=== PATIENT | female | born 1975 | race Caucasian/White ===

== ENCOUNTER → 2017-01-21 | Outpatient (CLI) | payer BC ==
--- NOTE | 2017-01-21 14:12 | US ---
EXAMINATION TYPE: US thyroid st tissue head/neck DATE OF EXAM: 01/21/2017 COMPARISON: NONE CLINICAL HISTORY: 41-year-old female R22.0 SWELLING MASS ABNORMALITY HEAD/NECK. Right neck painful/pa lpable lump x 5 months, dysphagia. TECHNIQUE: Multiple sonographic images of the thyroid gland are obtained. FINDINGS: GLAND SIZE: Right Lobe: 4.8 x 2.5 x 3.2 cm Overall Parenchyma: homogenous Left Lobe: 3.7 x 1.2 x 1.3 cm Overall Parenchyma: homogeneous Isthmus Thickness: 0.3 cm NODULES RIGHT: # of nodules measured on right: 1 1. 3.3 X 2.4 x 2.6 cm hypoechoic solid nodule at the mid pole with well-defined margins. This nodul e is wider than tall and shows intranodular vascularity. Prior size: no previous No additional nodules are seen. Bilateral neck scanned, no evidence of lymphadenopathy. IMPRESSION: Large solitary 3.3 cm solid nodule in the right lobe. FNA can further evaluate.
== END | disposition home or self-care (01) ==
LOC: RADUSWWP 12:26
PROVIDERS: ATTEND Internal Medicine
DX: E04.1 Nontoxic single thyroid nodule (principal)
CPT/HCPCS: 76536

== ENCOUNTER → 2017-01-21 | Outpatient (CLI) | payer BC ==
[2017-01-21 13:15] LABS: Basophils # (A) 0.1 k/uL (0-0.2); Basophils % (A) 1 %; CH 32.5; CHCM 33.9; Eosinophils # (A) 0.3 k/uL (0-0.7); Eosinophils % (A) 2 %; HCT 49.2 % (34.0-46.0); HDW 2.35; HGB 15.7 gm/dL (11.4-16.0); Luc # (Auto) 0.13; Luc % (Auto) 1; Lymphocytes # (A) 3.1 k/uL (1.0-4.8); Lymphocytes % (A) 31 %; MCH 30.7 pg (25.0-35.0); MCHC 31.9 g/dL (31.0-37.0); MCV 96.1 fL (80.0-100.0); Mean Platelet Volume 7.8; Monocytes # (A) 0.4 k/uL (0-1.0); Monocytes % (A) 4 %; Neutrophils # (A) 6.2 k/uL (1.3-7.7); Neutrophils % (A) 61 %; RBC 5.12 m/uL (3.80-5.40); RDW 13.9 % (11.5-15.5); WBC 10.2 k/uL (3.8-10.6); WBC (Perox) 10.11
[2017-01-21 13:37] LABS: Anion Gap 11 mmol/L; Blood Urea Nitrogen 11 mg/dL (7-17); Calcium 9.4 mg/dL (8.4-10.2); Carbon Dioxide 24 mmol/L (22-30); Chloride 107 mmol/L (98-107); Glucose 86 mg/dL (74-99); Non-African American GFR(MDRD) >60 (>60 ml/min/1.73 sqM); Potassium 4.4 mmol/L (3.5-5.1); Sodium 142 mmol/L (137-145)
[2017-01-21 13:40] LABS: Rheumatoid Factor, Qnt <9 IU/mL (<12)
[2017-01-21 20:14] LABS: ANA w/Reflex to Titer NEGATIVE (NEGATIVE)
== END | disposition home or self-care (01) ==
LOC: LABWHC1 12:49
PROVIDERS: ATTEND Physician Assistant
DX: R22.0 Localized swelling, mass and lump, head (principal); R68.83 Chills (without fever); R19.4 Change in bowel habit; R53.83 Other fatigue
CPT/HCPCS: 36415; 76536; 80048; 84439; 84443; 84481; 85025; 86038; 86376; 86431; 86800

== ENCOUNTER → 2017-06-23 | Outpatient (CLI) | payer BC ==
[2017-06-23 14:53] LABS: T4, Free (Free Thyroxine) 0.96 ng/dL (0.78-2.19)
== END | disposition home or self-care (01) ==
LOC: LABWHC1 13:56
PROVIDERS: ATTEND Internal Medicine Endocrinology, Diabetes & Metabolism
DX: E04.1 Nontoxic single thyroid nodule (principal)
CPT/HCPCS: 36415; 84439; 84443

== ENCOUNTER → 2017-08-20 | Outpatient (CLI) | payer BC ==
[2017-08-20 15:08] LABS: T4, Free (Free Thyroxine) 0.88 ng/dL (0.78-2.19)
== END | disposition home or self-care (01) ==
LOC: LABWHC1 08:43
PROVIDERS: ATTEND Internal Medicine Endocrinology, Diabetes & Metabolism
DX: E04.1 Nontoxic single thyroid nodule (principal)
CPT/HCPCS: 36415; 84439; 84443

== ENCOUNTER → 2017-08-27 | Outpatient (CLI) | payer BC ==
--- NOTE | 2017-08-28 10:38 | US ---
EXAMINATION TYPE: US thyroid st tissue head/neck DATE OF EXAM: 08/27/2017 COMPARISON: 2017 ct and us CLINICAL HISTORY: E04.1 SINGLE THYROID NODULE. Rt thyroidectomy 05/2017 benign residual tissue seen GLAND SIZE: Right Lobe: 1.1x0.5x0.7 cm Overall Parenchyma: homogenous Left Lobe: 3.7 x 1.1 x 1.5 cm Overall Parenchyma: homogeneous Isthmus Thickness: 0.3 cm NODULES RIGHT: # of nodules measured on right: 0 rt thyroidectomy 05/2017 benign residual tissue seen LEFT: # of nodules measured on left: 1 1. 0.3 X 0.2 x 0.4 cm isoechoic nodule at the mid pole with well-defined margins; . This nodule is wider than tall and shows no intranodular vascularity. Prior size: no prior ISTHMUS: # of nodules measured in the isthmus: 0 Bilateral neck scanned, no evidence of lymphadenopathy. IMPRESSION: Subcentimeter left thyroid nodule. Questionable residual tissue in the thyroid bed on the right, cons ider follow-up to assess for stability
== END | disposition home or self-care (01) ==
LOC: RADUSWWP 15:44
PROVIDERS: ATTEND Internal Medicine Endocrinology, Diabetes & Metabolism
DX: E04.1 Nontoxic single thyroid nodule (principal)
CPT/HCPCS: 76536

== ENCOUNTER 2017-12-31 21:08 | Emergency (ER) | payer BC ==
[2017-12-31 21:24] VITALS: RESP 18
[2017-12-31] MEDS ORDERED: ONDANSETRON 4 MG/2 ML VIAL IVP STA (22:32)
[2017-12-31] MEDS ORDERED: MORPHINE SULFATE 2 MG/ML SYRINGE IVP STA (22:32)
[2017-12-31] MEDS ORDERED: SODIUM CHLORIDE 0.9% 1,000 ML IV STA (22:32)
--- NOTE | 2017-12-31 22:36 | ED ---
General Adult HPI - General Chief complaint: Abdominal Pain Stated complaint: right side pain Source: patient Mode of arrival: ambulatory Limitations: no limitations - History of Present Illness Initial comments: Dictation was produced using [employer] dictation software. please excuse any grammatical, word or spelling errors. Chief Complaint: 42-year-old female past medical history of thyroid disorder, liver disease presents with right lower quadrant pain 2 days. History of Present Illness: He 2-year-old female presents with exquisite right lower quadrant pain 2 days. Her symptoms started yesterday. She denies any history of periumbilical symptoms. She localizes the pain to her right lower quadrant. Denies any vaginal discharge. She did have some nausea with one episode of emesis. Denies any diarrhea. Patient denies any constitutional symptoms. The ROS documented in this emergency department record has been reviewed and confirmed by me. Those systems with pertinent positive or negative responses have been documented in the HPI. All other systems are other negative and/or noncontributory. - Related Data Home Medications Medication Instructions Recorded Confirmed Naproxen Sodium [Aleve] 440 mg PO BID PRN 12/31/17 12/31/17 Previous Rx's Medication Instructions Recorded Polyethylene Glycol 3350 [Miralax] 17 gm PO DAILY #3 packet 01/01/18 Allergies Allergy/AdvReac Type Severity Reaction Status Date / Time No Known Allergies Allergy Verified 12/31/17 22:05 Review of Systems ROS Statement: Those systems with pertinent positive or pertinent negative responses have been documented in the HPI. ROS Other: All systems not noted in ROS Statement are negative. Past Medical History Past Medical History: Eye Disorder, Thyroid Disorder Additional Past Medical History / Comment(s): THYROID NODULE. BILAT GLAUCOMA. PELVIC ORGAN PROLAPSE History of Any Multi-Drug Resistant Organisms: None Reported Past Surgical History: Tubal Ligation Additional Past Surgical History / Comment(s): LASER SX TO EYES FOR GLAUCOMA. THYROID BX, right thyroidectomy Past Anesthesia/Blood Transfusion Reactions: No Reported Reaction Past Psychological History: No Psychological Hx Reported Smoking Status: Current every day smoker Past Alcohol Use History: Occasional Past Drug Use History: None Reported - Past Family History Mother Family Medical History: Cancer Father Family Medical History: Cancer General Exam - General Exam Comments Initial Comments: PHYSICAL EXAM: General Impression: Alert and oriented x3, acute distress secondary to pain HEENT: Normocephalic atraumatic, extra-ocular movements intact, pupils equal and reactive to light bilaterally, mucous membranes moist. Cardiovascular: Heart regular rate and rhythm, S1&S2 audible, no murmurs, rubs or gallops Chest: Lungs clear to auscultation bilaterally, no rhonchi, no wheeze, no rales Abdomen: Bowel sounds present, abdomen soft, tenderness at McBurney's point, positive rebound tenderness Musculoskeletal: Pulses present and equal in all extremities, no peripheral edema Motor: Power 5/5 bilaterally, no focal deficits noted Neurological: CN II-XII grossly intact, no focal motor or sensory deficits noted Skin: Intact with no visualized rashes Psych: Normal affect and mood Limitations: no limitations Course Vital Signs 12/31/17 12/31/17 21:21 23:20 Temperature 98.6 F Pulse Rate 86 69 Respiratory 18 18 Rate Blood Pressure 118/75 111/75 O2 Sat by Pulse 98 98 Oximetry Medical Decision Making - Medical Decision Making ED course: 42 female with clinical suspicion for appendicitis as his other causes of surgical abdomen. Vital signs upon arrival are within normal limits. Patient is afebrile. laboratory evaluation obtained. Mild leukocytosis of 11.3. Coag panel negative. Metabolic panel is unremarkable. Urinalysis shows no acute processes. Computed tomography scan of the abdomen and pelvis was obtained showing no acute processes. No findings to suggest appendicitis. There is fatty for duration of the liver with small renal cortical cyst. Discussed patient that she does have bilateral renal cyst that could be monitored on an outpatient basis. She is told to follow-up with her primary care physician upon discharge. No history was obtained from patient. She states she's been passing hard stools every other day. Clinically this represents constipation. She will be given prescription for MiraLAX to be taken. Told to follow up with primary care physician upon discharge. She is understandable and agreeable. - Lab Data Result diagrams: 12/31/17 23:00 12/31/17 23:00 Lab Results 12/31/17 12/31/17 12/31/17 Range/Units 23:00 23:00 23:00 WBC 11.3 H (3.8-10.6) k/uL RBC 4.73 (3.80-5.40) m/uL Hgb 14.5 (11.4-16.0) gm/dL Hct 43.8 (34.0-46.0) % MCV 92.6 (80.0-100.0) fL MCH 30.6 (25.0-35.0) pg MCHC 33.1 (31.0-37.0) g/dL RDW 12.5 (11.5-15.5) % Plt Count 222 (150-450) k/uL Neutrophils % 55 % Lymphocytes % 35 % Monocytes % 4 % Eosinophils % 3 % Basophils % 0 % Neutrophils # 6.2 (1.3-7.7) k/uL Lymphocytes # 4.0 (1.0-4.8) k/uL Monocytes # 0.5 (0-1.0) k/uL Eosinophils # 0.4 (0-0.7) k/uL Basophils # 0.0 (0-0.2) k/uL PT 10.6 (9.0-12.0) sec INR 1.1 (<1.2) Sodium 139 (137-145) mmol/L Potassium 4.1 (3.5-5.1) mmol/L Chloride 107 (98-107) mmol/L Carbon Dioxide 22 (22-30) mmol/L Anion Gap 10 mmol/L BUN 17 (7-17) mg/dL Creatinine 0.80 (0.52-1.04) mg/dL Est GFR (CKD-EPI)AfAm >90 (>60 ml/min/1.73 sqM) Est GFR (CKD-EPI)NonAf >90 (>60 ml/min/1.73 sqM) Glucose 100 H (74-99) mg/dL Calcium 9.0 (8.4-10.2) mg/dL Total Bilirubin 0.2 (0.2-1.3) mg/dL AST 23 (14-36) U/L ALT 44 (9-52) U/L Alkaline Phosphatase 77 (38-126) U/L Total Protein 6.6 (6.3-8.2) g/dL Albumin 4.3 (3.5-5.0) g/dL Lipase 55 (23-300) U/L Urine Color Urine Appearance (Clear) Urine pH (5.0-8.0) Ur Specific Lillian (1.001-1.035) Urine Protein (Negative) Urine Glucose (UA) (Negative) Urine Ketones (Negative) Urine Blood (Negative) Urine Nitrite (Negative) Urine Bilirubin (Negative) Urine Urobilinogen (<2.0) mg/dL Ur Leukocyte Esterase (Negative) Ur Squamous Epith Cells (0-4) /hpf Amorphous Sediment (None) /hpf Urine Mucus (None) /hpf 12/31/17 Range/Units 23:00 WBC (3.8-10.6) k/uL RBC (3.80-5.40) m/uL Hgb (11.4-16.0) gm/dL Hct (34.0-46.0) % MCV (80.0-100.0) fL MCH (25.0-35.0) pg MCHC (31.0-37.0) g/dL RDW (11.5-15.5) % Plt Count (150-450) k/uL Neutrophils % % Lymphocytes % % Monocytes % % Eosinophils % % Basophils % % Neutrophils # (1.3-7.7) k/uL Lymphocytes # (1.0-4.8) k/uL Monocytes # (0-1.0) k/uL Eosinophils # (0-0.7) k/uL Basophils # (0-0.2) k/uL PT (9.0-12.0) sec INR (<1.2) Sodium (137-145) mmol/L Potassium (3.5-5.1) mmol/L Chloride (98-107) mmol/L Carbon Dioxide (22-30) mmol/L Anion Gap mmol/L BUN (7-17) mg/dL Creatinine (0.52-1.04) mg/dL Est GFR (CKD-EPI)AfAm (>60 ml/min/1.73 sqM) Est GFR (CKD-EPI)NonAf (>60 ml/min/1.73 sqM) Glucose (74-99) mg/dL Calcium (8.4-10.2) mg/dL Total Bilirubin (0.2-1.3) mg/dL AST (14-36) U/L ALT (9-52) U/L Alkaline Phosphatase (38-126) U/L Total Protein (6.3-8.2) g/dL Albumin (3.5-5.0) g/dL Lipase (23-300) U/L Urine Color Yellow Urine Appearance Cloudy H (Clear) Urine pH 7.0 (5.0-8.0) Ur Specific Lillian 1.023 (1.001-1.035) Urine Protein Negative (Negative) Urine Glucose (UA) Negative (Negative) Urine Ketones Negative (Negative) Urine Blood Negative (Negative) Urine Nitrite Negative (Negative) Urine Bilirubin Negative (Negative) Urine Urobilinogen 2.0 (<2.0) mg/dL Ur Leukocyte Esterase Trace H (Negative) Ur Squamous Epith Cells 1 (0-4) /hpf Amorphous Sediment Few H (None) /hpf Urine Mucus Rare H (None) /hpf Disposition Clinical Impression: Acute abdomen Disposition: HOME SELF-CARE Condition: Good Prescriptions: Polyethylene Glycol 3350 [Miralax] 17 gm PO DAILY #3 packet Is patient prescribed a controlled substance at d/c from ED?: No Referrals: Edgar Hickey MD [Primary Care Provider] - 1-2 days Time of Disposition: 00:16
[2017-12-31 23:23] LABS: Basophils % (A) 0 %; Eosinophils # (A) 0.4 k/uL (0-0.7); Eosinophils % (A) 3 %; HCT 43.8 % (34.0-46.0); HGB 14.5 gm/dL (11.4-16.0); Lymphocytes % (A) 35 %; MCH 30.6 pg (25.0-35.0); MCHC 33.1 g/dL (31.0-37.0); MCV 92.6 fL (80.0-100.0); Mean Platelet Volume 7.4; Monocytes # (A) 0.5 k/uL (0-1.0); Monocytes % (A) 4 %; Neutrophils # (A) 6.2 k/uL (1.3-7.7); Neutrophils % (A) 55 %; Platelet Count 222 k/uL (150-450); RBC 4.73 m/uL (3.80-5.40); RDW 12.5 % (11.5-15.5); WBC 11.3 k/uL (3.8-10.6)
[2017-12-31 23:31] LABS: ALT 44 U/L (9-52); AST 23 U/L (14-36); Albumin 4.3 g/dL (3.5-5.0); Alkaline Phosphatase 77 U/L (38-126); Anion Gap 10 mmol/L; Blood Urea Nitrogen 17 mg/dL (7-17); Carbon Dioxide 22 mmol/L (22-30); Chloride 107 mmol/L (98-107); Glucose 100 mg/dL (74-99); Lipase 55 U/L (23-300); Potassium 4.1 mmol/L (3.5-5.1); Sodium 139 mmol/L (137-145); Total Bilirubin 0.2 mg/dL (0.2-1.3); Total Protein 6.6 g/dL (6.3-8.2)
[2017-12-31 23:41] LABS: Amorphous Sediment,Urine Few /hpf; Appearance,Urine Cloudy (Clear); Bilirubin,Urine Negative (Negative); Blood,Urine Negative (Negative); Color,Urine Yellow; Glucose,Urine (UA) Negative (Negative); Ketones,Urine Negative (Negative); Leukocyte Esterase,Urine Trace (Negative); Mucus,Urine Rare /hpf; Nitrite,Urine Negative (Negative); Protein,Urine Negative (Negative); Specific Gravity,Urine 1.023 (1.001-1.035); Squamous Epithelial Cell,Urine 1 /hpf (0-4)
[2017-12-31 23:43] LABS: INR 1.1 (<1.2); Prothrombin Time 10.6 sec (9.0-12.0)
--- NOTE | 2017-12-31 23:53 | CT ---
EXAMINATION TYPE: CT abdomen pelvis w con DATE OF EXAM: 12/31/2017 COMPARISON: 04/19/2013 HISTORY: RLQ abd pain CT DLP: 596.00 mGycm Automated exposure control for dose reduction was used. TECHNIQUE: Helical acquisition of images was performed from the lung bases through the pelvis. CONTRAST: Performed without Oral Contrast and with IV Contrast, patient injected with 100 mL of Isovue 300. FINDINGS: Heart size is normal. There is no pericardial effusion. Lung bases are clear. There is no pleural eff usion. There is slight decreased density in the liver. Liver shows no focal defect. Gallbladder appea rs normal. Bile ducts are not dilated. The spleen and pancreas appear normal. There is no adrenal mass. Kidneys show satisfactory contrast opacification. There is no hydronephrosi s. There is no retroperitoneal adenopathy. There is no ascites. There are multiple small bilateral re nal cortical cysts that measure up to 12 mm. I see no renal calculus. Bladder distends smoothly. Uter us is anteverted. There is no evidence of a pelvic mass. I see no bony destructive process. There are clips from tubal ligation. The appendix appears normal. There is no intestinal wall thickening. Ther e are no dilated loops. There is no evidence of a bowel obstruction. IMPRESSION: MILD FATTY INFILTRATION OF THE LIVER. SMALL RENAL CORTICAL CYSTS. NO SIGN OF ACUTE ABDOMEN AND PELVIS .
[2018-01-01 00:15] VITALS: BP 117/77; PULSE 65
[2018-01-01 00:25] VITALS: TEMP 97.9
== END 2018-01-01 00:25 | disposition home or self-care (01) ==
LOC: EC 21:08
DX: N28.1 Cyst of kidney, acquired (principal); K76.0 Fatty (change of) liver, not elsewhere classified; D72.829 Elevated white blood cell count, unspecified; F17.200 Nicotine dependence, unspecified, uncomplicated
CPT/HCPCS: 36415; 80053; 83690; 85025; 85610; 81001; 74177; 99284; 96374; 96375; 96361; J2405; J2270; Q9967

== ENCOUNTER → 2018-01-05 | Outpatient (CLI) | payer BC ==
[2018-01-05 12:15] LABS: T4, Free (Free Thyroxine) 0.86 ng/dL (0.78-2.19)
== END | disposition home or self-care (01) ==
LOC: LABWHC1 11:01
PROVIDERS: ATTEND Internal Medicine Endocrinology, Diabetes & Metabolism
DX: E04.1 Nontoxic single thyroid nodule (principal)
CPT/HCPCS: 36415; 84439; 84443

== ENCOUNTER → 2018-01-13 | Outpatient (CLI) | payer BC ==
[2018-01-13 17:43] LABS: ACTH 14.8 pg/mL (0.00-45.99)
== END | disposition home or self-care (01) ==
LOC: LABWHC1 07:52
PROVIDERS: ATTEND Internal Medicine Endocrinology, Diabetes & Metabolism
DX: R53.83 Other fatigue (principal)
CPT/HCPCS: 36415; 82024; 82533; 82607; 82670; 83001; 84146

== ENCOUNTER → 2018-01-22 | Outpatient (CLI) | payer BC ==
--- NOTE | 2018-01-22 11:01 | US ---
EXAMINATION TYPE: US thyroid st tissue head/neck DATE OF EXAM: 01/22/2018 COMPARISON: US 2018 CLINICAL HISTORY: E04.2 MULTINODULAR GOITER. Left side neck pain, right thyroidectomy 2016 GLAND SIZE: Right Lobe: 1.1 x 0.7 x 0.6 cm Overall Parenchyma: homogenous Left Lobe: 3.5 x 1.4 x 1.5 cm Overall Parenchyma: homogeneous Isthmus Thickness: 0.2 cm NODULES RIGHT: Residual tissue seen LEFT: # of nodules measured on left: 1 1. 0.5 X 0.2 x 0.3 cm hypoechoic nodule at the mid pole with well-defined margins. This nodule is t aller than wide and shows no intranodular vascularity. Prior size: 0.4 x 0.2 x 0.3 cm ISTHMUS: # of nodules measured in the isthmus: 0 Bilateral neck scanned, no evidence of lymphadenopathy. Subcentimeter left thyroid nodule. Residual tissue seen in the right thyroid bed. IMPRESSION: 1. Although there is a history of right-sided thyroidectomy there is continued evidence of residual t issue within the right thyroid bed that appears similar to the prior. 2. Overall stability of the subcentimeter solitary left thyroid nodule.
== END | disposition home or self-care (01) ==
LOC: RADUSWWP 08:03
PROVIDERS: ATTEND Internal Medicine Endocrinology, Diabetes & Metabolism
DX: E04.1 Nontoxic single thyroid nodule (principal); E89.0 Postprocedural hypothyroidism
CPT/HCPCS: 76536

== ENCOUNTER → 2018-06-10 | Outpatient (CLI) | payer BC ==
--- NOTE | 2018-06-10 23:32 | MR ---
EXAMINATION TYPE: MR brain wo/w con DATE OF EXAM: 06/10/2018 COMPARISON: None HISTORY: Homonymous bilateral field defects, right TECHNIQUE: Multiplanar, multisequence images of the brain and brainstem is performed without and with IV contras t, utilizing 7 mL intravenous Gadavist . FINDINGS: Ventricles of normal size. There is no mass effect nor midline shift. There is no sign of intracrania l hemorrhage. I see no evidence of a cortical infarct. Diffusion images appear normal. There is no ev idence of cerebral edema. Marie-white matter structures have fairly normal signal pattern. Corpus call osum appears normal. Sella turcica is normal. Brainstem appears normal. There is flow seen in the anterior middle and posterior cerebral arteries. There is arterial flow in the vertebrobasilar artery system. Optic chiasm appears normal. Pituitary stalk appears normal. There is no evidence of a sellar mass. There is normal contrast enhancement of the venous sinuses. There i s no evidence of orbital mass. There is increased signal in the right mastoid air cells consistent with sinusitis. IMPRESSION: No demonstrated intracranial abnormality. Exam fails to show a cause for vision loss. Right-sided mastoiditis.
== END ==
LOC: RADMRIMAIN 13:41
PROVIDERS: ATTEND Ophthalmology
DX: H53.461 Homonymous bilateral field defects, right side (principal)
CPT/HCPCS: 70553; A9585

== ENCOUNTER → 2018-07-27 | Outpatient (CLI) | payer BC ==
--- NOTE | 2018-07-27 16:14 | US ---
EXAMINATION TYPE: US thyroid st tissue head/neck DATE OF EXAM: 07/27/2018 COMPARISON: US 2018 CLINICAL HISTORY: E04.2, nontoxic multinodular goiter. Thyroid nodule, right lobe removed GLAND SIZE: Right Lobe: 1.3 x 0.8 x 0.6 cm Overall Parenchyma: homogenous Left Lobe: 3.6 x 1.3 x 1.5 cm Overall Parenchyma: homogeneous Isthmus Thickness: 0.3 cm NODULES RIGHT: residual tissue seen LEFT: # of nodules measured on left: 1 1. 0.4 X 0.2 x 0.3 cm hypoechoic nodule at the superior/mid pole with well-defined margins. This no dule is wider than tall and shows no intranodular vascularity. Prior size: 0.5 x 0.2 x 0.3 cm ISTHMUS: # of nodules measured in the isthmus: 0 Bilateral neck scanned, no evidence of lymphadenopathy. IMPRESSION: Residual tissue within the right lobe thyroidectomy bed is again seen. Correlate with Thy roglobulin level if there is a history of thyroid carcinoma. Similar size of a subcentimeter left thy roid nodule.
[2018-07-27 16:46] LABS: T4, Free (Free Thyroxine) 0.78 ng/dL (0.78-2.19)
== END | disposition home or self-care (01) ==
LOC: RADUSWWP 15:19
PROVIDERS: ATTEND Internal Medicine Endocrinology, Diabetes & Metabolism
DX: E04.1 Nontoxic single thyroid nodule (principal); E89.0 Postprocedural hypothyroidism; R53.83 Other fatigue; Z85.850 Personal history of malignant neoplasm of thyroid
CPT/HCPCS: 76536; 84146; 84439; 84443; 84445; 84480

== ENCOUNTER 2019-02-16 16:03 | Emergency (ER) | payer BC ==
[2019-02-16] MEDS ORDERED: SODIUM CHLORIDE 0.9% 1,000 ML IV STA (16:20)
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
[2019-02-16 17:15] LABS: Appearance,Urine Clear (Clear); Bilirubin,Urine Negative (Negative); Blood,Urine Negative (Negative); Color,Urine Yellow; Glucose,Urine (UA) Negative (Negative); Ketones,Urine Negative (Negative); Leukocyte Esterase,Urine Small (Negative); Mucus,Urine Rare /hpf; Nitrite,Urine Negative (Negative); PH, Urine 5.5 (5.0-8.0); Protein,Urine Negative (Negative); RBC,Urine 3 /hpf (0-5); Specific Gravity,Urine 1.024 (1.001-1.035); Squamous Epithelial Cell,Urine 3 /hpf (0-4); WBC,Urine 1 /hpf (0-5)
[2019-02-16 17:22] LABS: Amphetamine Screen,Urine Not Detected (NotDetected); Barbiturate Screen,Urine Not Detected (NotDetected); Benzodiazepines Screen,Urine Not Detected (NotDetected); Cocaine Screen,Urine Not Detected (NotDetected); Methadone Screen, Urine Not Detected (NotDetected); Opiate Screen,Urine Not Detected (NotDetected); Oxycodone Screen, Urine Not Detected (NotDetected); Phencyclidine Screen,Urine Not Detected (NotDetected); Tricyclic Antidepressant,Urine Not Detected (NotDetected); Urn Cannabinoid Scrn Not Detected (NotDetected)
[2019-02-16 17:29] LABS: Basophils # (A) 0.1 k/uL (0-0.2); Basophils % (A) 1 %; Eosinophils # (A) 0.3 k/uL (0-0.7); Eosinophils % (A) 3 %; HCT 47.3 % (34.0-46.0); Lymphocytes # (A) 2.9 k/uL (1.0-4.8); Lymphocytes % (A) 27 %; MCH 31.3 pg (25.0-35.0); MCHC 33.8 g/dL (31.0-37.0); MCV 92.8 fL (80.0-100.0); Mean Platelet Volume 7.4; Monocytes # (A) 0.5 k/uL (0-1.0); Monocytes % (A) 5 %; Neutrophils # (A) 6.7 k/uL (1.3-7.7); Neutrophils % (A) 63 %; Platelet Count 270 k/uL (150-450); RDW 14.1 % (11.5-15.5); WBC 10.6 k/uL (3.8-10.6)
[2019-02-16 17:33] LABS: INR 0.9 (<1.2); Partial Thromboplastin Time 25.7 sec (22.0-30.0); Prothrombin Time 9.7 sec (9.0-12.0)
[2019-02-16 17:40] LABS: ALT 26 U/L (9-52); AST 21 U/L (14-36); African American GFR (CKD) >90 (>60 ml/min/1.73 sqM); Albumin 4.5 g/dL (3.5-5.0); Alcohol <10 mg/dL; Alkaline Phosphatase 75 U/L (38-126); Anion Gap 9 mmol/L; Blood Urea Nitrogen 10 mg/dL (7-17); Calcium 9.1 mg/dL (8.4-10.2); Carbon Dioxide 23 mmol/L (22-30); Chloride 107 mmol/L (98-107); Creatine Kinase 54 U/L (30-135); Glucose 95 mg/dL (74-99); Potassium 3.9 mmol/L (3.5-5.1); Sodium 139 mmol/L (137-145); Total Bilirubin 0.4 mg/dL (0.2-1.3); Total Protein 7.5 g/dL (6.3-8.2)
[2019-02-16 17:53] LABS: Creatine Kinase MB <0.2 ng/mL (0.0-2.4); Troponin I <0.012 ng/mL (0.000-0.034)
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
--- NOTE | 2019-02-16 18:08 | XR ---
EXAMINATION TYPE: XR chest 1V DATE OF EXAM: 02/16/2019 COMPARISON: NONE HISTORY: Tingling. Pain. TECHNIQUE: Single frontal view of the chest is obtained. FINDINGS: Heart and mediastinum are normal. Lungs are clear. Diaphragm is normal. Bony thorax appear s normal. There are chest leads. IMPRESSION: Normal chest
--- NOTE | 2019-02-16 18:12 | XR ---
EXAMINATION TYPE: XR pelvis AP view DATE OF EXAM: 02/16/2019 COMPARISON: NONE HISTORY: Tingling. Pain TECHNIQUE: Single view FINDINGS: Pelvic ring is intact. There is bilateral clips from tubal ligation. Sacroiliac joints are normal. Proximal femurs are intact. IMPRESSION: Normal pelvis
[2019-02-16 19:01] VITALS: BP 117/84; PULSE 68; RESP 16; TEMP 98.8
[2019-02-16] MEDS ORDERED: Acetaminophen-Codeine 300-30mg TAB PO STA (19:05)
== END 2019-02-16 19:13 | disposition home or self-care (01) ==
LOC: EC 16:03
DX: T75.01XA Shock due to being struck by lightning, initial encounter (principal); R05 Cough; E04.1 Nontoxic single thyroid nodule; H40.9 Unspecified glaucoma; F17.200 Nicotine dependence, unspecified, uncomplicated; Z79.82 Long term (current) use of aspirin; Y93.89 Activity, other specified; Y92.099 Unspecified place in other non-institutional residence as the place of occurrence of the external cause
CPT/HCPCS: 36415; 70450; 71045; 72125; 72170; 80053; 80306; 80320; 81001; 82550; 82553; 83605; 84484; 85025; 85610; 85730; 86850; 86900; 86901; 93005; 96360; 96361; 99284

== ENCOUNTER → 2023-05-08 | Outpatient (CLI) | payer BC ==
--- NOTE | 2023-05-11 19:28 | CT ---
EXAMINATION TYPE: CT soft tissue neck w con DATE OF EXAM: 05/08/2023 COMPARISON: CT head 02/16/2019 HISTORY: 47-year-old female R22.1, swelling to left side of neck TECHNIQUE: Contiguous axial scanning of the soft tissues of the neck performed with IV Contrast, refugio ent injected with 100 mL of Isovue 300. Coronal and sagittal reconstructions performed. CT DLP: 392.4 mGycm Automated exposure control for dose reduction was used. FINDINGS: There is an asymmetrically enlarged left lobe of the thyroid gland. Possible underlying nodule measur ing up to 2.0 cm for which dedicated thyroid ultrasound is recommended. The submandibular and parotid glands appear satisfactory. Visualized intracranial structures, orbits and globes, paranasal sinuses appear clear. Rightward nasa l septal deviation. Ongoing opacification of the right mastoid air cells and right epitympanum. The right sided middle ea r ossicles are not well seen. Nasopharynx is clear. Again 3 mm calcification left palatine tonsil. Mild bilateral palatine tonsilla r hypertrophy. The epiglottis and prevertebral soft tissues are satisfactory. Glottic and subglottic structures as well as the tracheal column appears clear. Mild emphysematous change in the visualized upper lungs. No cervical lymphadenopathy or suspicious neck mass clearly identified. Mild to moderate degenerative disc disease C5-C6 with reversal of normal cervical lordosis. Patient i s partially dentulous. IMPRESSION: 1. ASYMMETRICALLY ENLARGED LEFT LOBE OF THE THYROID GLAND WITH SUGGESTION OF AN UNDERLYING NODULE MORRIS SURING UP TO 2.0 CM. DEDICATED THYROID ULTRASOUND EVALUATION IS RECOMMENDED. 2. ONGOING OPACIFICATION THE RIGHT MASTOID AIR CELLS AND RIGHT EPITYMPANUM. THE RIGHT-SIDED MIDDLE EA R OSSICLES ARE NOT WELL SEEN. FINDINGS ARE PRESENT BACK ON THE CT HEAD EXAM WELL. QUERY AN Y CHRONIC OTOMASTOIDITIS. CONSIDER ENT REFERRAL. 3. MILD BILATERAL PALATINE TONSILLAR HYPERTROPHY. NO CERVICAL LYMPHADENOPATHY OR SUSPICIOUS NECK MASS IDENTIFIED
== END | disposition home or self-care (01) ==
LOC: RADCTMAIN 16:01
PROVIDERS: ATTEND Family Medicine
DX: J35.1 Hypertrophy of tonsils (principal); H74.8X1 Other specified disorders of right middle ear and mastoid; E07.89 Other specified disorders of thyroid; R22.1 Localized swelling, mass and lump, neck
CPT/HCPCS: 70491; Q9967

== ENCOUNTER → 2023-05-20 | Outpatient (CLI) | payer BC ==
--- NOTE | 2023-05-20 11:08 | MM ---
Reason for Exam: Clinical finding. Patient History: Menarche at age 9. First Full-Term at age 19. Hormonal Contraceptives, from age 9 until age 12. Maternal aunt had breast cancer at or over age 50. Mother had breast cancer, age 50. Last menstrual period: 05/08/2023 Risk Values: Nicki 5 year model risk: 1.7%. NCI Lifetime model risk: 18.4%. Tissue Density: There are scattered fibroglandular densities. Findings: Analyzed By CAD. Pattern appears symmetrical. No suspicious groups of microcalcifications, spiculated or lobular masses, architectural distortion or other secondary signs of malignancy are mammographically apparent. Overall Assessment: Negative, BI-RAD 1 Management: Screening Mammogram of both breasts in 1 year. A negative mammogram report should not preclude additional follow up of suspicious palpable abnormalities. Patient should continue monthly self breast exam. A clinical breast exam by your physician is recommended on an annual basis and results should be correlated with mammographic findings. Electronically signed and approved by: Roney Dixon D.O. Radiologis
== END | disposition home or self-care (01) ==
LOC: RADMAMWWP 10:25
PROVIDERS: ATTEND Family Medicine
DX: R92.323 Mammographic fibroglandular density, bilateral breasts (principal); N64.4 Mastodynia; Z80.3 Family history of malignant neoplasm of breast
CPT/HCPCS: 77062; 77066

== ENCOUNTER → 2023-06-02 | Outpatient (CLI) | payer BC ==
--- NOTE | 2023-06-02 13:15 | CA ---
Exercise Stress Test Report Name: Tiffanie Snell Exam Date: 06/02/2023 08:52 Exam Location: [place] Stress Ht (in): 60 Wt (lb): 156 BSA: 1.68 Ordering Phys: Joe Glez MD Referring Phys: Christie Dobbins PAC Technologist: Guillermo Raza Age: 47 Gender: F : 1975 Procedure CPT: Indications: R07.9 CHEST PAIN R06.09 DYSPNEA ICD-10 Codes: Patient History: Chest pain, short of breath and palpitations Medications: Meds past 24 hrs: Pretest Chest Pain: STRESS TEST Harry Protocol Exercise Duration (min:sec): 04:[address] Depressions (mm): Angina Score: Dunaway Score: Resting HR (bpm): 69 Peak HR (bpm): 118 Resting BP (mmHg): 104 / 72 Peak BP (mmHg): 137 / 75 MPHR: 174 Target HR: 148 % MPHR: 68 METS: 7.1 Total Dose: Peak Dose: Atropine: Double Product: 92738 BP Response: Stress Termination: Max exertion Stress Symptoms: Dyspnea and chest pressure Stress Summary: ECG ANALYSIS Resting ECG: Stress ECG: CONCLUSIONS Patient underwent exercise stress EKG with a Harry protocol treadmill stress test. Patient exercised into Stage 2 for a total of 4 minutes and 32 seconds reaching a total of 7.1 METS. Patient's maximum heart rate was 118 which represented 67 % age- predicted maximum heart rate. Stress EKG findings: At baseline patient's EKG showed normal sinus rhythm, normal axis, no significant ST or T wave abnormalities. At peak exercise, EKG showed unchanged from baseline. Conclusions: 1. Nondiagnostic stress EKG given inability to reach 85% maximum predicted heart rate 2. However at 67% maximum predicted heart rate, no inducible ischemia by EKG 3. Poior exercise capacity. Dr. Stephane Knight DO (Electronically Signed) Final Date: 02 June 2023 13:14
== END | disposition home or self-care (01) ==
LOC: RADNMMAIN 08:19
PROVIDERS: ATTEND Family Medicine
DX: R07.9 Chest pain, unspecified (principal); R06.09 Other forms of dyspnea; R00.2 Palpitations
CPT/HCPCS: 93017

== ENCOUNTER → 2023-06-12 | Outpatient (CLI) | payer BC ==
[~2023-06-12] MED LIST: REGADENOSON 0.4 MG/5 ML SYRINGE IV ONE
--- NOTE | 2023-06-12 11:02 | CA ---
Lexiscan Nuclear Stress Test Report Name: Tiffanie Snell Exam Date: 06/12/2023 09:41 Exam Location: [place] Stress Ht (in): 60 Wt (lb): 157 BSA: 1.68 Ordering Phys: Sandy Glez DO Referring Phys: Christie Dobbins PAC Technologist: Guillermo Rzaa Age: 47 Gender: F : 1975 Procedure CPT: Indications: R07.9 Chest pain E07.9 DISORDER OF THYROID ICD-10 Codes: Patient History: CP, IRMA, FAMILY HX, TOB, COPD Medications: SPIRIVA,,,,,, ALBUTEROL,,,,,, MEDROXY,,,,,, PROGESTERONE,,,,,, TUMOLOL,,,,, Meds past 24 hrs: Pretest Chest Pain: STRESS TEST Lexiscan Protocol Exercise Duration (min:sec): 01:[address] Depressions (mm): Angina Score: Dunaway Score: Resting HR (bpm): 72 Peak HR (bpm): 122 Resting BP (mmHg): 109 / 77 Peak BP (mmHg): 109 / 77 MPHR: 174 Target HR: 148 % MPHR: 70 METS: 1.0 Total Dose: Peak Dose: Atropine: Double Product: 76147 BP Response: Stress Termination: INFUSION COMPLETE Stress Symptoms: DIFFICULTY IN BREATHING,CHEST PRESSURE,HEADACHE Stress Summary: ECG ANALYSIS Resting ECG: Stress ECG: CONCLUSIONS Baseline EKG revealed a normal sinus rhythm without significant ST-T changes. The heart rate changed with Lexiscan administration from 71-114 bpm and the blood pressure changed from 109/77-98/71. Patient did not have any anginal symptoms he complained of some shortness of breath and flushed feeling. By EKG criteria this is a unremarkable Lexiscan stress test. The nuclear scan results which are more pertinent will be reported with radiologist Dr. Danie Walker MD (Electronically Signed) Final Date: 12 June 2023 11:01
--- NOTE | 2023-06-13 13:49 | NM ---
EXAMINATION TYPE: NM stress lexiscan cardiolite DATE OF EXAM: 06/12/2023 COMPARISON: NONE HISTORY: Chest pain TECHNIQUE: After the intravenous administration of 10.05 mCi Tc 99m Sestamibi - Cardiolite resting S PECT images acquired 45 minutes post injection. At peak stress 26.2 mCi Tc 99m Sestamibi - Stress images obtained 30 minutes post injection The patient was stressed with 0.4mg Lexiscan. FINDINGS: Small amount of diminished radiotracer accumulation may be within the septal wall near the cardiac ap ex. This is a more standard radiotracer distribution on the resting images. Some mild stress-induced ischemic change of the proximal septal wall is not excluded. This matches the polar maps. There may be some mild dyskinesia of the distal anterior wall Ejection fraction is calculated to be 60 %. IMPRESSION: 1. Some minimal stress-induced ischemic change along the septal wall near the cardiac pacemaker is pr esent. 2. Mild dyskinesia of the distal anterior wall. Ejection fraction remains normal.
== END | disposition home or self-care (01) ==
LOC: RADNMMAIN 07:55
PROVIDERS: ATTEND Family Medicine
DX: G24.9 Dystonia, unspecified (principal); R07.9 Chest pain, unspecified; E07.9 Disorder of thyroid, unspecified; I24.81 Acute coronary microvascular dysfunction; Z95.0 Presence of cardiac pacemaker
CPT/HCPCS: 78452; 93017

== ENCOUNTER → 2023-06-24 | Outpatient (CLI) | payer BC ==
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
== END | disposition home or self-care (01) ==
LOC: RADNMMAIN 08:28
PROVIDERS: ATTEND Family Medicine
DX: R07.9 Chest pain, unspecified (principal); E07.9 Disorder of thyroid, unspecified
CPT/HCPCS: 78014; A9516

== ENCOUNTER 2023-06-30 06:37 | Day surgery (SDC) | payer BC ==
[2023-06-25 11:25] VITALS: BMI 29.9
[2023-06-30] MEDS ORDERED: LACTATED RINGERS 1,000 ML IV ONE (07:17)
[2023-06-30] MEDS ORDERED: LIDOCAINE 1% (10MG/ML) FOR IV START INTRADERMA PRN (07:18)
[2023-06-30] MEDS ORDERED: ONDANSETRON 4 MG/2 ML VIAL IVP PRN (07:18)
[2023-06-30] MEDS ORDERED: LACTATED RINGERS 1,000 ML IV SCH (07:18)
[2023-06-30 07:50] VITALS: TEMP 96.9
[2023-06-30] MEDS ORDERED: LIDOCAINE 1% INJ 10MG/ML (20 ML MDV) ONE (07:57)
[2023-06-30] MEDS ORDERED: PROPOFOL 10 MG/ML 20 ML VIAL IV ONE (07:57)
--- NOTE | 2023-06-30 08:20 | P.PCN ---
Date of Procedure: 06/30/23 Procedure(s) Performed: BRIEF HISTORY: Patient is a 47-year-old pleasant white female scheduled for an elective colonoscopy as a part of screening for colon cancer. PROCEDURE PERFORMED: Colonoscopy snare polypectomy. PREOPERATIVE DIAGNOSIS: Screening for colon cancer. IV sedation per Anesthesia. PROCEDURE: After informed consent was obtained, the patient, was brought into the endoscopy unit. IV sedation was administered by Anesthesia under continuous monitoring. Digital rectal examination was normal. Initially the Olympus CF-160 flexible video colonoscope was then inserted in the rectum, gradually advanced into the cecum without any difficulty. Careful examination was performed as the scope was gradually being withdrawn. Ileocecal valve and the appendiceal orifice were visualized and appeared normal. Prep was excellent. Mucosa of the cecum, ascending colon, transverse colon were normal. The descending colon there was a 6 minute a polyp that was removed by cold snare polypectomy. Rest of the, descending colon, sigmoid colon, and rectum appeared normal. The proximal rectum there was a 4 mm polyp removed by cold snare polypectomy. Retroflexion was performed in the rectum and no lesions were seen. The patient tolerated the procedure well. IMPRESSION: 6 mm descending colon polyp status post cold snare polypectomy 4 mm proximal rectal polyp status post cold snare polypectomy RECOMMENDATIONS: Findings of this examination were discussed with the patient as well as a family. She was advised to follow with the biopsy results. If the biopsy results adenoma she can have a repeat colonoscopy in 5 years.
[2023-06-30 08:42] VITALS: BP 112/59; PULSE 68; RESP 15
== END 2023-06-30 09:30 | disposition home or self-care (01) ==
LOC: ORWHC2ENDO 06:37
PROVIDERS: ATTEND Internal Medicine Gastroenterology
DX: Z12.11 Encounter for screening for malignant neoplasm of colon (principal); K63.5 Polyp of colon; J44.9 Chronic obstructive pulmonary disease, unspecified; E03.9 Hypothyroidism, unspecified; K76.0 Fatty (change of) liver, not elsewhere classified; F17.200 Nicotine dependence, unspecified, uncomplicated; Z79.51 Long term (current) use of inhaled steroids; Z79.1 Long term (current) use of non-steroidal anti-inflammatories (NSAID); Z79.899 Other long term (current) drug therapy
CPT/HCPCS: 81025; 88305; 45385; J2001; J2704

== ENCOUNTER → 2023-07-07 | Outpatient (CLI) | payer BC ==
[2023-07-07 17:59] LABS: Blood Urea Nitrogen 8.1 mg/dL (9.0-27.0); Carbon Dioxide 23.4 mmol/L (21.6-31.8); Chloride 108 mmol/L (96-109); Potassium 4.2 mmol/L (3.5-5.5); Sodium 142 mmol/L (135-145)
[2023-07-07 19:39] LABS: HCT 44.1 % (37.2-46.3); HGB 14.6 g/dL (12.0-15.0); MCH 31.8 pg (27.0-32.0); MCHC 33.1 g/dL (32.0-37.0); MCV 96.1 FL (80.0-97.0); Mean Platelet Volume 10.9 FL (9.5-12.2); NRBC Per 100 WBC 0 X 10*3/uL (0.00-0.01); Platelet Count 236 X 10*3/uL (140-440); RBC 4.59 X 10*6/uL (4.10-5.20); RDW 12.9 % (11.5-14.5); WBC 7.15 X 10*3/uL (4.50-10.00)
== END | disposition home or self-care (01) ==
LOC: LABPAT 10:13
PROVIDERS: ATTEND Internal Medicine Interventional Cardiology
DX: Z01.812 Encounter for preprocedural laboratory examination (principal); R94.39 Abnormal result of other cardiovascular function study; R07.9 Chest pain, unspecified
CPT/HCPCS: 36415; 80051; 82565; 84520; 85027

== ENCOUNTER 2023-07-09 09:09 | Day surgery (SDC) | payer BC ==
[2023-07-03 11:46] VITALS: BMI 30.4
[~2023-07-09 09:09] MED LIST changes: +ALPRAZolam 0.25 MG TAB PO PRN; +ALPRAZolam 0.5 MG TAB PO PRN; +ASPIRIN 325 MG TAB PO ONE; +ATORVASTATIN 80 MG TAB PO ONE; +HEPARIN SODIUM,PORCINE (1 ML) 2,500 UNIT in SODIUM CHLORIDE 0.9% 250 ML IRRIGATION PRN; +HEPARIN SODIUM,PORCINE 10,000 UNIT in SODIUM CHLORIDE 0.9% 1,000 ML IRRIGATION PRN; +NITROGLYCERIN SL TABS 0.4 MG TAB SUBLINGUAL PRN; -REGADENOSON 0.4 MG/5 ML SYRINGE IV ONE; +SODIUM CHLORIDE 0.9% 1,000 ML in EMPTY BAG 1 BAG IV SCH
[2023-07-09] MEDS ORDERED: SODIUM CHLORIDE 0.9% 1,000 ML IV ONE (09:21)
[2023-07-09] MEDS ORDERED: ASPIRIN 81 MG ONE (09:24)
[2023-07-09] MEDS ORDERED: HEPARIN SODIUM 1,000 UN/ML (10ML VL) ONE (10:04)
[2023-07-09] MEDS ORDERED: VERAPAMIL 2.5 MG/ML 2 ML AMP ONE ×2 (10:04→10:10)
[2023-07-09] MEDS ORDERED: LIDOCAINE 1% INJ 10MG/ML (20 ML MDV) ONE (10:04)
[2023-07-09] MEDS ORDERED: fentaNYL (PF) 50 MCG/ML 2 ML AMP ONE (10:05)
[2023-07-09 10:06] VITALS: RESP 16; TEMP 97.5
[2023-07-09] MEDS ORDERED: MIDAZOLAM 2 MG/2 ML VIAL IVP ONE ×2 (10:36→10:42)
[2023-07-09] MEDS ORDERED: fentaNYL (PF) 50 MCG/ML 2 ML AMP IVP ONE (10:36)
[2023-07-09] MEDS ORDERED: LIDOCAINE 1% INJ 10MG/ML (20 ML MDV) SQ ONE (10:36)
[2023-07-09] MEDS ORDERED: VERAPAMIL 2.5 MG/ML 4 ML VIAL INTRAARTER ONE (10:41)
[2023-07-09] MEDS ORDERED: HEPARIN SODIUM 1,000 UN/ML (10ML VL) IVP ONE (10:43)
[2023-07-09] MEDS ORDERED: IOPAMIDOL-370 100ML BTL INJ ONE (10:50)
--- NOTE | 2023-07-09 13:21 | P.CARDCATH ---
Date of Procedure: 07/09/23 Description of Procedure: DIAGNOSTIC CORONARY ANGIOGRAPHY and LEFT HEART CATH REPORT PROCEDURES PERFORMED: Left heart catheterization Selective coronary angiography Moderate conscious sedation 15 mins Right radial access INDICATION: Positive nuclear stress test 47-year-old female who underwent treadmill nuclear stress test because of chest pain and exertional shortness of breath symptoms. While on treadmill she had 4 over 10 substernal chest pressure which resolved with resting. Imaging portion showed mild to moderate intensity small to moderate in size reversible perfusion defect involving the anterior wall. For this he was scheduled for an outpatient heart catheterization CONSENT: I have explained the procedural steps of above-mentioned procedures in layman's terms to the patient. I discussed the risks (including but not limited to stroke, emergent vascular or cardiac surgery or ), benefits and alternative therapies for the above-mentioned procedure. I discussed the risks of sedation/analgesia and blood product administration (if indicated). The patient has indicated understanding and acceptance of these risks. Conscious Sedation: Patient's ECG, heart rate, blood pressure, pulse oximetry were monitored throughout the duration of procedure under my direct supervision. [2] mg Versed and [50] mg Fentanyl were used for induction of moderate conscious sedation. Total duration of moderate concious sedation 15 minutes. PROCEDURE: After explaining the risks, benefits and alternatives of the above mentioned procedures in detail to the patient, informed consent was obtained. Patient was taken to the catheterization lab, prepped and draped in usual sterile fashion using universal precuations. Barbow and natan test were performed to confirm adequate perfusion to fingers. Ultrasound was used to identify the radial artery. 1% lidocaine was infiltrated over the right radial artery. A 6-Chinese sheath was placed and secured in the right radial artery using modified Seldinger technique. The sheath was flushed and 5 mg verapamil was administered intra-arterially. J tipped wire was advanced under fluoroscopic guidance. Once the wire tip reached aortic root [5000] units of IV heparin was given. Over the wire Rodney diagnostic catheter was advanced. The wire in place the catheter was manipulated to cross the aortic valve and entered into LV under fluoroscopy guidance. The wire was removed and the catheter was flushed. LV pressures were obtained and pullback was performed under fluoroscopy. Catheter was manipulated to selectively engage the right coronary ostium. Right coronary angiography was performed in different angiographic projections. The catheter manipulated under fluoroscopy to selectively engaged the left coronary ostium. Left coronary angioplasty was performed in different angiographic projections. Catheter was removed over the wire. Radial sheath was flushed. The right radial sheath was removed and a TR band was placed with excellent patent hemostasis was achieved. The patient tolerated the procedure well. Patient was transported back to the post catheterization holding area in stable condition. Angiographic images were reviewed in detail. HEMODYNAMICS: Aortic Pressure: 100/75 mmHg. LV pressure: 102/3 mmHg. LVEDP 15 mmHg. There was no significant gradient across the aortic valve. SELECTIVE CORONARY ARTERIOGRAPHY: LEFT MAIN: The left main is a large caliber vessel which bifurcates into the LAD and circumflex. Left main appears angiographically normal. LEFT ANTERIOR DESCENDING CORONARY ARTERY: LAD is a large caliber vessel which wraps around to the apex. Proximal LAD appears angiographically normal. Mid LAD appears angiographically normal. Distal LAD appears angiographically normal. LEFT CIRCUMFLEX CORONARY ARTERY: It is nondominant vessel. Left circumflex is a moderate caliber vessel. It appears angiographically normal. RIGHT CORONARY ARTERY: Dominant vessel. The right coronary artery is a large caliber vessel which gives PDA and PLV branch. It appears angiographically normal. IMPRESSION: Angiographically normal coronary arteries as described above. Normal left sided filling pressures PLAN: Aggressive risk factor modification per most recent ACC/AHA guidelines. 150 cc fluids for 3 hours Discharge home in 3 hours Follow-up in the office in 1-2 weeks. Performing Physician Juan Azul MD, FACC, RPVI Thank you for allowing [facility] to participate in this patient's care. Feel free to reach out in case of any followup questions. Please CC the report to Dr. Sandy Glez DO
[2023-07-09 14:09] VITALS: PULSE 65
[2023-07-09 16:52] VITALS: BP 110/63
== END 2023-07-09 14:02 | disposition home or self-care (01) ==
LOC: CATHCVL 09:09
PROVIDERS: ATTEND Student in an Organized Health Care Education/Training Program
DX: R94.39 Abnormal result of other cardiovascular function study (principal); E66.9 Obesity, unspecified; Z88.1 Allergy status to other antibiotic agents; Z88.8 Allergy status to other drugs, medicaments and biological substances
CPT/HCPCS: 93458; 76937; 81025; C1769 ×2; C1894; J2250; J2001; J3010; J1644; Q9967

== ENCOUNTER → 2023-07-31 | Outpatient (CLI) | payer BC ==
--- NOTE | 2023-07-31 08:30 | CT ---
EXAMINATION TYPE: CT sinus wo con CT DLP: 440.7 mGycm, Automated exposure control for dose reduction was used. DATE OF EXAM: 07/31/2023 8:14 AM COMPARISON: 02/16/2019 CLINICAL INDICATION:Female, 48 years old with history of J32.0 CHRONIC MAXILLARY SINUSITIS; , Chronic maxillary sinusitis TECHNIQUE: Multiple thin axial images were obtained through the paranasal sinuses without the use of IV contrast. Additional coronal and sagittal reformatted images were submitted for evaluation. Contrast used: none Oral contrast used: none FINDINGS: Frontal sinuses: Normally developed with minimal mucosal thickening. Frontal Recess: Clear Maxillary Sinuses: Normally developed with minimal mucosal thickening. Maxillary Infundibula([facility]): Clear, No Jai cells identified. Ethmoid sinuses: Normally developed with minimal mucosal thickening. Ethmoidal notch: Protected and a butting the lateral lamina. Sphenoid sinuses: Normally developed with minimal mucosal thickening. There is sellar sphenoid sinus pneumatization without evidence of dehiscence. No dehiscence of carotid canal. No evidence of optic nerve dehiscence within the sphenoid sinus. No evidence of Onodi cells. Sphenoethmoidal recesses: Cl ear. Nasal septum: Within normal limits.. Nasal Turbinates: Within normal limits. Mastoid air cells & middle ears: Opacification of the majority of the right mastoid air cells.. Pruss ak's space.space is opacified on the right. Modified Soft tissues & Brain: Partially seen without gross abnormality. Globes are intact. Other: Cribriform plate demonstrates symmetric Keros classification type 2 cribriform plate. No evidence of bony dehiscence of skull base. Lamina papyracea is intact without evidence of remote orbital fracture or orbital prolapse into the e thmoid sinus. IMPRESSION: 1. No significant mucosal sinus disease. 2. The ostiomeatal units, frontonasal and sphenoethmoidal recesses are clear. 3. Right mastoiditis of pleural effusion with opacification of Prussak's space. Findings similar back to 2019.
== END | disposition home or self-care (01) ==
LOC: RADCTMAIN 07:58
PROVIDERS: ATTEND Otolaryngology
DX: J90 Pleural effusion, not elsewhere classified (principal); H70.91 Unspecified mastoiditis, right ear; H74.8X1 Other specified disorders of right middle ear and mastoid; J32.0 Chronic maxillary sinusitis
CPT/HCPCS: 70486

== ENCOUNTER 2023-08-13 08:45 | Day surgery (SDC) | payer BC ==
[2023-08-13] MEDS: ALPRAZolam 0.5 MG TAB PO STA (09:16)
[2023-08-13 09:39] VITALS: RESP 16; TEMP 98.1
[2023-08-13 10:47] VITALS: BP 100/68; PULSE 76
--- NOTE | 2023-08-13 18:01 | US ---
EXAMINATION TYPE: US FNA thyroid first lesion DATE OF EXAM: 08/13/2023 10:15 AM REASON FOR EXAM: 48-year-old female E04.1 Nontoxic single thyroid nodule RADIOLOGIST: Dr. Miguel Angel Carrion PROCEDURE: An initial scanning showed solid isoechoic TR3 nodule in the left lobe measuring 2.5 cm. This is targ eted for FNA. The procedure, along with the risks and complications were discussed with the patient. Patient agreed to proceed with the procedure. A consent was signed and placed in patient's chart. Maximum sterile barrier technique was utilized. Timeout was performed by myself. The left side of the neck was sterilely prepped and draped in the usual fashion. 5 milliliters of 1% Lidocaine were utili zed to anesthetize the superficial and deep soft tissues. Following that, under ultrasound guidance, 5 passes were made into the nodule with 5 cc syringe sucti on. After each pass, the sample was placed on a slide and then sent for pathology. Upon conclusion, hemostasis was achieved, and patient was discharged home in satisfactory condition. IMPRESSION: Successful FNA of the dominant 2.5 cm TR3 nodule left lobe. Pathology pending.
== END 2023-08-13 10:30 | disposition home or self-care (01) ==
LOC: RADPROMAIN 08:45
PROVIDERS: ATTEND Family Medicine
DX: E04.1 Nontoxic single thyroid nodule (principal)
CPT/HCPCS: 10005; 88173; 88305